=== PATIENT | female | born 1995 | race Caucasian/White ===

== ENCOUNTER 2017-07-05 13:56 | Emergency (ER) | payer BC ==
[2017-07-05 14:10] VITALS: BP 97/45
[2017-07-05] MEDS ORDERED: Rabies Immune Globulin 2 ML* 150 UNITS/ML VIAL IM ONE (14:32)
[2017-07-05] MEDS ORDERED: Rabies VIRUS VACCINE (Imovax)* 2.5 UNIT/ML 1 ML IM ONE (14:33)
[2017-07-05] MEDS ORDERED: Tetan/Diph/Pertus SYR(Tdap)* 0.5 ML SYR(BOOSTRIX) use SYR IM ONE (14:51)
--- NOTE | 2017-07-05 15:18 | UC ---
Bite Injury/Animal HPI - HPI Summary HPI Summary: Patient presents s/p wild cat scratch to her left lower leg. She states there was a stray cat outside her apartment and it scratch her leg. She was told to come in for rabies immunoglobulin and vaccine. She reports her tetanus is eight years old. Patient denies any redness, or drainage from the site. - History of Current Complaint Chief Complaint: UCGeneralIllness Stated Complaint: RABIES EXPOSURE Time Seen by Provider: 07/05/17 14:31 Hx Obtained From: Patient Hx Last Menstrual Period: 07/05/17 ?: No Severity Currently: Mild Severity Initially: Mild Onset/Duration: Sudden Onset, Lasting Days Type of Bite: Animal Has Animal Been Immunized?: Unknown Character: Abrasion/Laceration Associated Signs And Symptoms: Positive: Erythema Animal Available for Observation: No Animal Control Notified: Yes - Risk Factors Infection/Sepsis Risk Factors: Negative - Allergies/Home Medications Allergies/Adverse Reactions: Allergies Allergy/AdvReac Type Severity Reaction Status Date / Time No Known Allergies Allergy Verified 07/05/17 14:02 PMH/Surg Hx/FS Hx/Imm Hx Previously Healthy: Yes - Surgical History Surgical History: None - Family History Known Family History: Positive: None - Social History Occupation: Student Lives: Alone Alcohol Use: None Substance Use Type: None Smoking Status (MU): Never Smoked Tobacco Review of Systems Constitutional: Negative Skin: Other - three linear scratches on the left lowr lateral leg. Eyes: Negative ENT: Negative Respiratory: Negative Cardiovascular: Negative Gastrointestinal: Negative Genitourinary: Negative Motor: Negative Neurovascular: Negative All Other Systems Reviewed And Are Negative: Yes Physical Exam Triage Information Reviewed: Yes Appearance: Well-Appearing Vital Signs: Initial Vital Signs Temp 98.8 F 07/05/17 14:03 Pulse 110 07/05/17 14:03 Resp 16 07/05/17 14:03 BP 97/45 07/05/17 14:03 Pulse Ox 100 07/05/17 14:03 Vital Signs Reviewed: Yes Eye Exam: Normal ENT Exam: Normal Neck exam: Normal Respiratory Exam: Normal Cardiovascular Exam: Normal Abdominal Exam: Normal Skin Exam: Other - three linear scratches noted to the left lower lateral leg. no surrounding induration, or flucuance noted. Bite Injury Course/Dx - Course Course Of Treatment: Patient presents s/p scratches to the left lower leg from a stray cat. She was sent for rabies immunoglobulin and vaccine. She received the immunoglobulin and vaccine as well as tatanus. She will follow up for the remaining vaccine to complete the series. She tolerated the injection well and discharge home in stable condition. - Differential Dx/Diagnosis Differential Diagnosis/HQI/PQRI: Rabies Exposure Provider Diagnoses: rabies exposure. need for tetanus vaccine. rabies immunoglobulin. rabies vaccine Discharge - Discharge Plan Condition: Stable Disposition: HOME Patient Education Materials: Rabies Immune Globulin (By injection), Rabies Vaccine (ED) Referrals: No Primary Care Phys,NOPCP [Primary Care Provider] - Images Feet (Multiple View): 1 - animal scratches 2 - animal scratches 3 - animal scratches.
== END 2017-07-05 15:18 | disposition home or self-care (01) ==
LOC: UCEAST 13:56
DX: S80.812A Abrasion, left lower leg, initial encounter (principal); W55.03XA Scratched by cat, initial encounter; Y93.9 Activity, unspecified; Y92.9 Unspecified place or not applicable; Z20.3 Contact with and (suspected) exposure to rabies; Z23 Encounter for immunization
CPT/HCPCS: 90375; 90471; 90472; 90715; 96372; 99201; G0463

== ENCOUNTER 2017-07-06 13:21 | Emergency (ER) | payer BC ==
[2017-07-06 14:18] VITALS: BP 111/69
[2017-07-06] MEDS ORDERED: Rabies Immune Globulin 2 ML* 150 UNITS/ML VIAL IM ONE ×2 (14:30→14:35)
--- NOTE | 2017-07-06 14:42 | UC ---
HPI Wound/Suture Re-check - HPI Summary HPI Summary: This is an otherwise healthy 22 yo female who presents at the request of the health department. She was seen yesterday for evaluation of a cat scratch from a feral cat sustained the night before. She did not receive local wound infiltration of the Rabies immune globulin but instead received it IM. The health department has requested that she return for wound infiltration. She denies any acute concerns that were not addressed yesterday. - History Of Current Complaint Chief Complaint: [place] Stated Complaint: RABIES Time Seen by Provider: 07/06/17 14:30 Hx Last Menstrual Period: 07/03/17 - Allergies/Home Medications Allergies/Adverse Reactions: Allergies Allergy/AdvReac Type Severity Reaction Status Date / Time No Known Allergies Allergy Verified 07/06/17 14:18 Home Medications: Home Medications Amoxicillin/Clavulanate TAB* [Augmentin TAB 500 mg*] 500 mg PO BID 07/06/17 [ History Confirmed 07/06/17] Norethindrone Acetate-Ethinyl [Lo Loestrin Fe 1 mg-10 Mcg / 10 Mcg] 1 tab PO DAILY 07/06/17 [History Confirmed 07/06/17] PMH/Surg Hx/FS Hx/Imm Hx Previously Healthy: Yes - Surgical History Surgical History: None - Family History Known Family History: Positive: None - Social History Alcohol Use: None Substance Use Type: None Smoking Status (MU): Never Smoked Tobacco Review of Systems Constitutional: Negative Skin: Other - cat scratch L leg Eyes: Negative ENT: Negative Respiratory: Negative Cardiovascular: Negative Gastrointestinal: Negative Genitourinary: Negative Motor: Negative Neurovascular: Negative Musculoskeletal: Negative Neurological: Negative Psychological: Negative Is Patient Immunocompromised?: No All Other Systems Reviewed And Are Negative: Yes Physical Exam Triage Information Reviewed: Yes Appearance: Well-Appearing - somewhat emotional Vital Signs: Initial Vital Signs Temp 98.3 F 07/06/17 14:13 Pulse 74 07/06/17 14:13 Resp 16 07/06/17 14:13 BP 111/69 07/06/17 14:13 Pulse Ox 100 07/06/17 14:13 Vital Signs Reviewed: Yes ENT: Positive: Hearing grossly normal Neck exam: Normal Neck: Positive: Supple, Nontender Respiratory: Positive: Lungs clear. Negative: Crackles, Rhonchi, Wheezing Cardiovascular Exam: Normal Cardiovascular: Positive: RRR, No Murmur Abdominal Exam: Normal Abdomen Description: Positive: Nontender Musculoskeletal: Positive: Strength Intact, ROM Intact Neurological: Positive: Alert Psychological Exam: Normal Psychological: Positive: Normal Response To Family Skin: Positive: Other - 3 horizontal lacerations over the L lateral lower leg, and 3 small puncture francisco along the medial portion of the leg Procedures - Procedure Summary Procedure Summary: Local infiltration of rabies immunoglobulin along each of the 3 scratch sites and small puncture sites for a total of 4 injections and a total of 4ml of immunoglobulin administered Course/Dx - Course Course Of Treatment: Patient returned at the request of the health department for immunoglobulin administration at the site of injury. A total of 4ml of immunoglobulin was administered at the site of injury spread over 4 injection sites. - Differential Dx - Laceration/Wound Provider Diagnoses: 1. Feral cat scratch - possible rabies exposure Discharge - Discharge Plan Condition: Stable Disposition: HOME Additional Instructions: Instructions: 1. Complete antibiotics as previously prescribed 2. Follow up with the health department as previously recommended
== END 2017-07-06 15:02 | disposition home or self-care (01) ==
LOC: UCEAST 13:21
DX: S80.812A Abrasion, left lower leg, initial encounter (principal); W55.03XA Scratched by cat, initial encounter; Y93.9 Activity, unspecified; Y92.9 Unspecified place or not applicable; Z20.3 Contact with and (suspected) exposure to rabies
CPT/HCPCS: 90375; 96372; 99211; G0463